=== PATIENT | female | born 1985 | race Hispanic/Latino ===

== ENCOUNTER 2023-08-11 10:08 | Emergency (ER) | payer MEDICAID, SELFPAY | END 2023-08-11 11:25 | disposition home or self-care (01) | LOC: CSHERS 10:08 | DX: O26.891 Other specified pregnancy related conditions, first trimester (principal); O24.911 Unspecified diabetes mellitus in pregnancy, first trimester; Z3A.09 9 weeks gestation of pregnancy | CPT/HCPCS: 99283 ==